=== PATIENT | male | born 2000 | race Caucasian/White ===

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

== ENCOUNTER 2023-06-09 22:09 | Emergency (ER) | payer BC, OTHER ==
--- NOTE | 2023-06-09 22:48 | ED ---
General Adult HPI - General Source: patient, family Mode of arrival: wheelchair Limitations: no limitations <Elsa Jones - Last Filed: 06/09/23 22:47> <Terrie Arnold - Last Filed: 06/11/23 05:41> - General Chief complaint: Syncope Stated complaint: syncope Time Seen by Provider: 06/09/23 22:46 - History of Present Illness Initial comments: 22-year-old male presenting with chief complaint of syncope. Patient had 1 episode of syncope yesterday, and today I am told that he is "not acting right". 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 He is brought to the ER today after having a syncopal episode yesterday and multiple episodes of palpitations and just not feeling right. Patient reports that at 1230 yesterday he was at a house showing when he had a syncopal episode falling backwards and hitting his head on some drywall causing some damage to the drywall. Patient states he was feeling somewhat d isoriented he then walked out to the car to leave and accidentally shot his right thumb in the car door. Patient went home and his family encouraged him to come the hospital but he did not want to. Today patient has had some palpitations reports feeling like his heart is racing and he is going to . He has not experienced this in the past. This prompted family to encourage him to come to the ER he agreed. (Terrie Arnold) - Related Data Allergies Allergy/AdvReac Type Severity Reaction Status Date / Time No Known Allergies Allergy Verified 12/21/21 22:18 Review of Systems ROS Other: All systems not noted in ROS Statement are negative. <Elsa Jones - Last Filed: 06/09/23 22:47> ROS Other: All systems not noted in ROS Statement are negative. <Terrie Arnold - Last Filed: 06/11/23 05:41> ROS Statement: Those systems with pertinent positive or pertinent negative responses have been documented in the HPI. 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 History of Any Multi-Drug Resistant Organisms: None Reported Past Surgical History: No Surgical Hx Reported Additional Past Surgical History / Comment(s): july 2019 brain bleed / broken neck / lacerated kidney stage 1 Past Psychological History: No Psychological Hx Reported Smoking Status: Former smoker Past Alcohol Use History: None Reported Past Drug Use History: None Reported <Elsa Jones - Last Filed: 06/09/23 22:47> Additional Past Medical History / Comment(s): Traumatic brain injury with hemorrhage, prolonged hospitalization with intubation 2019 <Terrie Arnold - Last Filed: 06/11/23 05:41> General Exam Limitations: no limitations <Elsa Jones - Last Filed: 06/09/23 22:47> General appearance: alert, in no apparent distress Head exam: Present: atraumatic, normocephalic Eye exam: Present: PERRL ENT exam: Present: normal exam Respiratory exam: Present: normal lung sounds bilaterally. Absent: respiratory distress Cardiovascular Exam: Present: regular rate, normal rhythm GI/Abdominal exam: Present: soft. Absent: distended Rectal exam: Present: deferred Extremities exam: Present: other (Right thumb with a subungual hematoma of approximately 60% of the thumb nail) Neurological exam: Present: alert, oriented X3, CN II-XII intact, normal gait Psychiatric exam: Present: normal mood Skin exam: Present: warm, dry, intact <Terrie Arnold - Last Filed: 06/11/23 05:41> - General Exam Comments Initial Comments: Visual Physical Exam Vital signs reviewed General: Well-appearing, nontoxic, no acute distress. Head: Normocephalic, atraumatic Eyes: PERRLA, EOMI ENT: Airway patent Chest: Nonlabored breathing Skin: No visual rash, normal skin tone Neuro: Alert and oriented 3 Musculoskeletal: No gross abnormalities (Elsa Jones) Course Vital Signs 06/09/23 06/10/23 06/10/23 22:35 00:56 03:08 Temperature 98.1 F 98.1 F Pulse Rate 84 76 85 Respiratory 16 18 18 Rate Blood Pressure 111/73 120/93 122/70 O2 Sat by Pulse 99 100 98 Oximetry Procedures - Incision & Drainage Consent Obtained: verbal consent Indication: Subungual hematoma Site: hand (Right thumbnail) Size (cm): 60 (Percent) I&D Drainage Obtained: Blood Patient Tolerated Procedure: well <ClaytonTerrie P - Last Filed: 06/11/23 05:41> Medical Decision Making <Elsa Jones - Last Filed: 06/09/23 22:47> - Lab Data Result diagrams: 06/09/23 23:00 06/09/23 23:00 <Mary Arnoldica P - Last Filed: 06/11/23 05:41> - Medical Decision Making I performed the quick note portion of this visit electronically signed Elsa Jones PA-C (Elsa Jones) Was pt. sent in by a medical professional or institution ([facility] [place], CLERK ENTRY LEVEL, urgent care, hospital, or half-way...) When possible be specific @ -No Did you speak to anyone other than the patient for history (EMS, parent, family, police, friend...)? What history was obtained from this source @ -Patient's sister and significant other Did you review nursing and triage notes (agree or disagree)? Why? @ -I reviewed and agree with nursing and triage notes Were old charts reviewed (outside hosp., previous admission, EMS record, old EKG, old radiological studies, urgent care reports/EKG's, half-way records)? Report findings @ -No previous charts available Differential Diagnosis (chest pain, altered mental status, abdominal pain women, abdominal pain men, vaginal bleeding, weakness, fever, dyspnea, syncope, headache, dizziness, GI bleed, back pain, seizure, CVA, palpatations, mental health)? @ -Differential Syncope: Valvular disease, hypertrophic cardiomyopathy, pulmonary embolism, tamponade, tachycardia, bradycardia, ND, hypovolemia, hemorrhage, dissection, anemia, intracranial hemorrhage, seizure, hypoglycemia, carbon monoxide poisoning, this is not meant to be an all-inclusive list. EKG interpreted by me (3pts min.). @ -As above X-rays interpreted by me (1pt min.). @X-ray chest no abnormality X-ray of hand no fracture CT interpreted by me (1pt min.). @ -X-ray of brain with mass, no bleed, no midline shift U/S interpreted by me (1pt. min.). @ -None done What testing was considered but not performed or refused? (CT, X-rays, U/S, labs)? Why? @ -None What meds were considered but not given or refused? Why? @ -None Did you discuss the management of the patient with other professionals (professionals i.e. , PA, CLERK ENTRY LEVEL, lab, RT, psych nurse, social work supervisor, registered nurse renal, teacher, forest fire officer, case management manager)? Give summary @ -No Was smoking cessation discussed for >3mins.? @ -No Was critical care preformed (if so, how long)? @ -No Were there social determinants of health that impacted care today? How? (Homelessness, low income, unemployed, alcoholism, drug addiction, transportation, low edu. Level, literacy, decrease access to med. care, snf, rehab)? @ -No Was there de-escalation of care discussed even if they declined (Discuss DNR or withdrawal of care, Hospice)? DNR status @ -No What co-morbidities impacted this encounter? (DM, HTN, Smoking, COPD, CAD, Cancer, CVA, ARF, Chemo, Hep., AIDS, mental health diagnosis, sleep apnea, morbid obesity)? @ -None Was patient admitted / discharged? Hospital course, mention meds given and route, prescriptions, significant lab abnormalities, going to OR and other pertinent info. @ -Discharged Patient was seen and evaluated history is obtained from patient. Patient was syncope yesterday some head injury family feels he is not acting right today he seems quite anxious. Maybe had some heart racing. He also has subungual hematoma of the right hand. Labs and imaging were unremarkable and the subungual hematoma was drained. I discussed with the patient and his girlfriend at bedside if he is having palpitations or he has recurrent syncope he should follow-up with the primary care physician and talk about getting a Holter monitor. Girlfriend also worried that he is not acting like his normal self seems somewhat delayed, given his significant TBI history I recommend he follow- up with a neurologist. Undiagnosed new problem with uncertain prognosis? @ -No Drug Therapy requiring intensive monitoring for toxicity (Heparin, Nitro, Insulin, Cardizem)? @ -No Were any procedures done? @ -No Diagnosis/symptom? @ -Syncope Acute, or Chronic, or Acute on Chronic? @ -Acute Uncomplicated (without systemic symptoms) or Complicated (systemic symptoms)? @ -Default Side effects of treatment? @ -No Exacerbation, Progression, or Severe Exacerbation? @ -No Poses a threat to life or bodily function? How? (Chest pain, USA, ND, pneumonia, PE, COPD, DKA, ARF, appy, cholecystitis, CVA, Diverticulitis, Homicidal, Suicidal, threat to staff... and all critical care pts) @ -Unlikely Diagnosis/symptom? @ -Subungual hematoma Acute, or Chronic, or Acute on Chronic? @ -Acute Uncomplicated (without systemic symptoms) or Complicated (systemic symptoms)? @ -Uncomplicated Side effects of treatment? @ -None Exacerbation, Progression, or Severe Exacerbation] @ -No Poses a threat to life or bodily function? @ -No (Terrie Arnold) - Lab Data Lab Results 06/09/23 06/09/23 06/09/23 Range/Units 22:56 23:00 23:00 WBC 7.7 (4.0-11.0) k/uL RBC 5.03 (4.30-5.90) m/uL Hgb 15.2 (13.0-17.5) gm/dL Hct 42.8 (39.0-53.0) % MCV 85.2 (80.0-100.0) fL MCH 30.3 (25.0-35.0) pg MCHC 35.6 (31.0-37.0) g/dL RDW 12.2 (11.5-15.5) % Plt Count 181 (150-450) k/uL MPV 7.4 Neutrophils % 62 % Lymphocytes % 30 % Monocytes % 5 % Eosinophils % 1 % Basophils % 0 % Neutrophils # 4.8 (1.3-7.7) k/uL Lymphocytes # 2.3 (1.0-4.8) k/uL Monocytes # 0.4 (0-1.0) k/uL Eosinophils # 0.1 (0-0.7) k/uL Basophils # 0.0 (0-0.2) k/uL PT (10.0-12.5) sec INR (<1.2) APTT (22.0-30.0) sec D-Dimer (<0.60) mg/L FEU Sodium 142 (137-145) mmol/L Potassium 3.7 (3.5-5.1) mmol/L Chloride 107 (98-107) mmol/L Carbon Dioxide 25 (22-30) mmol/L Anion Gap 10 mmol/L BUN 19 (9-20) mg/dL Creatinine 0.94 (0.66-1.25) mg/dL Est GFR (CKD-EPI)AfAm >90 (>60 ml/min/1.73 sqM) Est GFR (CKD-EPI)NonAf >90 (>60 ml/min/1.73 sqM) Glucose 144 H (74-99) mg/dL POC Glucose (mg/dL) 136 H (70-110) mg/dL POC Glu [employer] Stick Worker ID Jose Horton Calcium 9.9 (8.4-10.2) mg/dL Total Bilirubin 0.5 (0.2-1.3) mg/dL AST 18 (17-59) U/L ALT 13 (4-49) U/L Alkaline Phosphatase 70 (38-126) U/L Total Protein 7.6 (6.3-8.2) g/dL Albumin 4.9 (3.5-5.0) g/dL 06/10/23 Range/Units 01:12 WBC (4.0-11.0) k/uL RBC (4.30-5.90) m/uL Hgb (13.0-17.5) gm/dL Hct (39.0-53.0) % MCV (80.0-100.0) fL MCH (25.0-35.0) pg MCHC (31.0-37.0) g/dL RDW (11.5-15.5) % Plt Count (150-450) k/uL MPV Neutrophils % % Lymphocytes % % Monocytes % % Eosinophils % % Basophils % % Neutrophils # (1.3-7.7) k/uL Lymphocytes # (1.0-4.8) k/uL Monocytes # (0-1.0) k/uL Eosinophils # (0-0.7) k/uL Basophils # (0-0.2) k/uL PT 11.7 (10.0-12.5) sec INR 1.1 (<1.2) APTT 25.9 (22.0-30.0) sec D-Dimer <0.17 (<0.60) mg/L FEU Sodium (137-145) mmol/L Potassium (3.5-5.1) mmol/L Chloride (98-107) mmol/L Carbon Dioxide (22-30) mmol/L Anion Gap mmol/L BUN (9-20) mg/dL Creatinine (0.66-1.25) mg/dL Est GFR (CKD-EPI)AfAm (>60 ml/min/1.73 sqM) Est GFR (CKD-EPI)NonAf (>60 ml/min/1.73 sqM) Glucose (74-99) mg/dL POC Glucose (mg/dL) (70-110) mg/dL POC Glu [place] Worker ID Calcium (8.4-10.2) mg/dL Total Bilirubin (0.2-1.3) mg/dL AST (17-59) U/L ALT (4-49) U/L Alkaline Phosphatase (38-126) U/L Total Protein (6.3-8.2) g/dL Albumin (3.5-5.0) g/dL Disposition <Elsa Jones - Last Filed: 06/09/23 22:47> Is patient prescribed a controlled substance at d/c from ED?: No <Terrie Arnold - Last Filed: 06/11/23 05:41> Clinical Impression: Syncope, Palpitations, Subungual hematoma of finger of right hand Disposition: HOME SELF-CARE Condition: Stable Referrals: None,Stated [Primary Care Provider] - 1-2 days [facility] [REFERRING] - 1-2 days
[2023-06-09 22:51] VITALS: TEMP 98.1
[2023-06-09 22:58] LABS: Glucose,Whole Blood 136 mg/dL (70-110)
[2023-06-09 23:12] LABS: Basophils % (A) 0 %; Eosinophils # (A) 0.1 k/uL (0-0.7); Eosinophils % (A) 1 %; HCT 42.8 % (39.0-53.0); HGB 15.2 gm/dL (13.0-17.5); Lymphocytes # (A) 2.3 k/uL (1.0-4.8); Lymphocytes % (A) 30 %; MCH 30.3 pg (25.0-35.0); MCHC 35.6 g/dL (31.0-37.0); MCV 85.2 fL (80.0-100.0); Mean Platelet Volume 7.4; Monocytes # (A) 0.4 k/uL (0-1.0); Monocytes % (A) 5 %; Neutrophils # (A) 4.8 k/uL (1.3-7.7); Neutrophils % (A) 62 %; Platelet Count 181 k/uL (150-450); RBC 5.03 m/uL (4.30-5.90); RDW 12.2 % (11.5-15.5); WBC 7.7 k/uL (4.0-11.0)
[2023-06-09 23:21] LABS: ALT 13 U/L (4-49); AST 18 U/L (17-59); African American GFR (CKD) >90 (>60 ml/min/1.73 sqM); Albumin 4.9 g/dL (3.5-5.0); Alkaline Phosphatase 70 U/L (38-126); Anion Gap 10 mmol/L; Blood Urea Nitrogen 19 mg/dL (9-20); Calcium 9.9 mg/dL (8.4-10.2); Carbon Dioxide 25 mmol/L (22-30); Chloride 107 mmol/L (98-107); Glucose 144 mg/dL (74-99); Non-African American GFR(CKD) >90 (>60 ml/min/1.73 sqM); Potassium 3.7 mmol/L (3.5-5.1); Sodium 142 mmol/L (137-145); Total Bilirubin 0.5 mg/dL (0.2-1.3); Total Protein 7.6 g/dL (6.3-8.2)
--- NOTE | 2023-06-09 23:48 | XR ---
EXAMINATION TYPE: XR chest 2V DATE OF EXAM: 06/09/2023 COMPARISON: NONE HISTORY: Syncope TECHNIQUE: Frontal and lateral views of the chest are obtained. FINDINGS: There is no focal air space opacity, pleural effusion, or pneumothorax seen. The cardiac silhouette size is within normal limits. The osseous structures are intact. IMPRESSION: No acute cardiopulmonary process.
--- NOTE | 2023-06-09 23:50 | XR ---
EXAMINATION TYPE: XR hand complete RT DATE OF EXAM: 06/09/2023 CLINICAL HISTORY: PAIN TECHNIQUE: Frontal, lateral and oblique images of the right hand are obtained. COMPARISON: None. FINDINGS: There is no acute fracture/dislocation evident in the right hand. The joint spaces in the right hand appear within normal limits. The overlying soft tissue appears unremarkable. IMPRESSION: Unremarkable study.
[2023-06-10] MEDS: SODIUM CHLORIDE 0.9% 1,000 ML IV STA (01:16)
[2023-06-10 01:19] VITALS: RESP 18
--- NOTE | 2023-06-10 01:55 | CT ---
EXAMINATION TYPE: CT brain wo con DATE OF EXAM: 06/10/2023 COMPARISON: None. HISTORY: PT presents after a syncopal episode yesterday at 1pm, and multiple episodes today of not ac ting right. Pt is slow to respond and his arm feels tight. Syncope and confusion. CT DLP: 1255.4 mGycm. Automated Exposure Control for Dose Reduction was Utilized. TECHNIQUE: CT scan of the head is performed without contrast. FINDINGS: There is no acute intracranial hemorrhage, mass effect, or midline shift identified. The ventricles and sulci are within normal limits in size. Mcintosh-white matter differentiation is maintain ed. Nasal septum is slightly deviated to left of midline. The globes are intact and the visualized si nuses are clear. IMPRESSION: No acute intracranial hemorrhage, mass effect, or midline shift is seen.
[2023-06-10 01:56] LABS: INR 1.1 (<1.2); Partial Thromboplastin Time 25.9 sec (22.0-30.0); Prothrombin Time 11.7 sec (10.0-12.5)
[2023-06-10 03:28] VITALS: BP 122/70; PULSE 85
== END 2023-06-10 03:10 | disposition home or self-care (01) ==
LOC: EC 22:09
DX: S60.011A Contusion of right thumb without damage to nail, initial encounter (principal); R00.2 Palpitations; R55 Syncope and collapse; Z87.891 Personal history of nicotine dependence; W18.09XA Striking against other object with subsequent fall, initial encounter
CPT/HCPCS: 10060; 36415; 70450; 71046; 80053; 85025; 85379; 85610; 85730; 93005; 96360; 99284